=== PATIENT | female | born 1950 | race Two or more races ===

== ENCOUNTER 2018-04-19 23:43 | Observation (INO) | payer OTHER, BC ==
--- NOTE | 2018-04-20 00:01 | PDOC ---
Attending Attestation - HPI HPI: 04/20/18 00:23 The patient is a 67 year old female, with a significant past medical history of HTN and gastritis, who presents to the emergency department with, 3 days of chest pain. She describes her chest pain as a constant, 7/10, nonradiating pain initially onsetting after PT now worsening today. Pain is worsened with deep inspiration and movement and alleviated when sitting upright. She denies recent fevers, chills, headache or dizziness. She denies recent nausea, vomit, diarrhea or constipation. She denies recent dysuria, frequency, urgency or hematuria. She denies recent palpitations or shortness of breath. <Sherwin Lockhart - Last Filed: 04/20/18 00:23> - Resident Resident Name: Loren Jovel - ED Attending Attestation I have performed the following: I have examined & evaluated the patient, The case was reviewed & discussed with the resident, I agree w/resident's findings & plan - Physicial Exam PE: 04/20/18 01:00 Agree with resident exam. Pt has clear lungs and rapid HR @90bpm Pt has soft NT ND abd. She has no flank pain. She has good peripheral pulses and she has no pitting edema. - Medical Decision Making 04/20/18 01:00 Pt will be admitted to telelmetry obs, as she has 4 risk factors for CAD. 04/20/18 01:47 Labs normal; first cardiac enzyme normal. CXR cardiomegaly only; EKG NSR. Nonspecific flat lateral T waves (no old EKGs for comparison). 04/20/18 01:49 Pt will be admitted to tele obs for serial cardiac enzymes. <Cheri Tanner - Last Filed: 04/20/18 01:49> Heart Score/ECG Review - History History: Slightly suspicious - Electrocardiogram EKG: Non specific repolarization disturbance - Age Age: >/= 65 - Risk Factors Risk Factors Heart Score: Yes Hx Hypertension, Yes Positive family hx of cardiac disease, Yes Hx Obesity Based on the list above the patient has:: >/=3 risk factors or Hx atherosclerotic disease - Troponin Troponin: </= normal limit - Score Heart Score - Total: 5 - ECG Intrepretation Rhythm: Regular Rhythm - Benedict Benedict: Normal - QRS Poor R Wave Progression: No Q Wave Present: No - ST and T Early Repolarization: No Non Specific ST-T Wave changes: Yes Flattened T Waves: Yes - ECG Impressions Normal ECG: Yes Non-specific ST Elevation: No Ischemic Changes: Yes Bradycardia: No Torsades stella Pointes: No <Cheri Tanner - Last Filed: 04/20/18 01:49> Attestations - Attestations 04/20/18 00:26 Documentation prepared by Sherwin Lockhart, acting as medical numerical control operator for Cheri Tanner MD. <Sherwin Lockhart - Last Filed: 04/20/18 00:23>
[2018-04-20 00:03] VITALS: BMI 43.9
[2018-04-20] MEDS ORDERED: ACETAMINOPHEN 325 MG TABLET (FP) PO ONE (00:05)
--- NOTE | 2018-04-20 00:18 | PDOC ---
History of Present Illness - General Chief Complaint: Chest Pain Stated Complaint: CHEST PAIN Time Seen by Provider: 04/19/18 23:48 History Source: Patient Exam Limitations: No Limitations - History of Present Illness Initial Comments: 04/20/18 00:08 This is a 67 yo F with PMH of HTN, gastritis and recurrent noncancerous masses ( s/p multiple abd and tissue excisions), who presents due to CP. Left sided nonradiating cp 10/09 is constant, aggravated my movement and respiration, alleviated by sitting up and tylenol, nonradiating. It started 3 days ago after PT for her torn L rotator cuff but became severe this morning. Patient has not had pain like this before. Patient just had a normal physical with PCP and states her HTN is usually well controlled. She has a normal TTE several years ago. She denies sob, palpitations, orthopnea, cough, f/c, edema, anorexia. denies abd pain but does admit to a lot of belching today. denies n/v/d/c. Father of [place] in his 50's, no family history of sudden Past History - Past Medical History Allergies/Adverse Reactions: Allergies Allergy/AdvReac Type Severity Reaction Status Date / Time NSAIDS (Non-Steroidal Allergy Severe Itching Verified 04/20/18 00:30 Anti-Inflamma Home Medications: Ambulatory Orders Hydrochlorothiazide [Hctz -] 25 mg PO DAILY 04/20/18 Losartan Potassium [Cozaar -] 50 mg PO DAILY 04/20/18 - Suicide/Smoking/Psychosocial Hx Smoking History: Never smoked Have you smoked in the past 12 months: No Information on smoking cessation initiated: No Hx Alcohol Use: No Drug/Substance Use Hx: No Review of Systems - Review of Systems Able to Perform ROS?: Yes Is the patient limited Kinyarwanda proficient: No Constitutional: No: Chills, Fever HEENTM: No: Difficulty Swallowing Respiratory: No: Cough, Orthopnea, Shortness of Breath, Hemoptysis Cardiac (ROS): Yes: Chest Pain. No: Edema, Irregular Heart Rate, Lightheadedness, Palpitations, Syncope ABD/GI: No: Constipated, Diarrhea, Nausea, Poor Appetite, Vomiting, Abdominal cramping : No: Dysuria Musculoskeletal: No: Back Pain Neurological: No: Headache Psychiatric: No: Anxiety, Depression *Physical Exam - Vital Signs Last Vital Signs Temp Pulse Resp BP Pulse Ox 98.3 F 88 20 155/92 97 04/19/18 23:55 04/19/18 23:55 04/19/18 23:55 04/19/18 23:55 04/20/18 00:42 - Physical Exam General Appearance: Yes: Nourished, Appropriately Dressed, Mild Distress, Obese HEENT: positive: EOMI, Normal Voice, Symmetrical. negative: Scleral Icterus (R) , Scleral Icterus (L) Neck: positive: Supple. negative: Tender, Lymphadenopathy (R), Lymphadenopathy (L) Respiratory/Chest: positive: Lungs Clear, Normal Breath Sounds Cardiovascular: positive: Regular Rhythm, Regular Rate, S1, S2, Systolic Murmur (grade 2 ). negative: JVD Gastrointestinal/Abdominal: positive: Normal Bowel Sounds, Flat, Soft. negative : Pulsatile Mass, Distended, Rebound, Tenderness, Mass Musculoskeletal: negative: CVA Tenderness Integumentary: positive: Dry, Warm Neurologic: positive: medical technical writer II-XII NML intact (grossly), Fully Oriented, Normal Mood/Affect Heart Score/ECG Review - History History: Slightly suspicious - Electrocardiogram EKG: Non specific repolarization disturbance - Age Age: >/= 65 - Risk Factors Risk Factors Heart Score: Yes Hx Hypertension, No Hx Diabetes, No Smoking History Based on the list above the patient has:: 1-2 risk factors - Troponin Troponin: </= normal limit - Score Heart Score - Total: 4 - ECG Intrepretation Rhythm: Regular Rhythm - [place]: Normal Moderate Sedation - Procedure Monitoring Vital Signs: Procedure Monitoring Vital Signs Temperature 98.3 F 04/19/18 23:55 Pulse Rate 88 04/19/18 23:55 Respiratory Rate 20 04/19/18 23:55 Blood Pressure 155/92 04/19/18 23:55 O2 Sat by Pulse Oximetry (%) 97 04/20/18 00:42 ED Treatment Course - LABORATORY CBC & Chemistry Diagram: 04/20/18 00:30 04/20/18 01:00 - ADDITIONAL ORDERS Additional order review: Laboratory Results 04/20/18 04/20/18 04/20/18 01:00 01:00 00:30 Sodium 137 Cancelled Potassium 3.7 Cancelled Chloride 99 Cancelled Carbon Dioxide 33 H Cancelled Anion Gap 5 L Cancelled BUN 19 H Cancelled Creatinine 0.8 Cancelled Creat Clearance w eGFR > 60 Cancelled Random Glucose 118 H Cancelled Calcium 8.9 Cancelled Total Bilirubin 0.4 Cancelled AST 19 Cancelled ALT 26 Cancelled Alkaline Phosphatase 101 Cancelled Creatine Kinase 57 Cancelled Troponin I < 0.02 Cancelled Total Protein 7.7 Cancelled Albumin 3.6 Cancelled 04/20/18 00:30 RBC 4.45 MCV 84.7 MCHC 33.8 RDW 14.7 MPV 9.8 Neutrophils % 63.4 Lymphocytes % 28.4 Monocytes % 6.6 Eosinophils % 1.0 Basophils % 0.6 EKG NS, nonspecific t changes in lateral leads, no ekg to compare to CXR unremarkable for acute intrathoracic pathology. labs unremarkable, trop negative x 1 despite negative w/u so far patient has several risk factors and a heart score of 4, should be obs tele for trop x3 r/o acs - RADIOLOGY Radiology Studies Ordered: Category Date Time Status CHEST X-RAY PORTABLE* [RAD] Stat Radiology 04/20/18 01:30 Taken - Medications Given in the ED: ED Medications Discontinued Medications Generic Name Dose Route Start Last Admin Trade Name Freq PRN Reason Stop Dose Admin Acetaminophen 650 mg 04/20/18 00:05 04/20/18 00:47 Tylenol - PO 04/20/18 00:06 650 mg ONCE ONE Administration *DC/Admit/Observation/Transfer Diagnosis at time of Disposition: Chest pain - Discharge Dispostion Condition at time of disposition: Guarded Decision to Admit order: Yes - Referrals Referrals: Jarrell Echevarria [Primary Care Provider] - - Patient Instructions - Post Discharge Activity
[2018-04-20 00:35] LABS: BASO % 0.6 % (0-2.0); HEMATOCRIT 37.7 % (32.4-45.2); HEMOGLOBIN 12.7 GM/dL (10.7-15.3); LYMPH % 28.4 % (8-40); MCH 28.6 pg (25.7-33.7); MCHC 33.8 g/dl (32.0-36.0); MEAN CELL VOLUME 84.7 fl (80-96); MEAN PLT VOLUME 9.8 fl (7.5-11.1); MONO % 6.6 % (3.8-10.2); NEUT % 63.4 % (42.8-82.8); PLATELET COUNT 208 K/MM3 (134-434); RBC 4.45 M/mm3 (3.60-5.2); RDW 14.7 % (11.6-15.6); WHITE BLOOD COUNT 9.2 K/mm3 (4.0-10.0)
[2018-04-20 01:37] LABS: ALBUMIN 3.6 g/dl (3.4-5.0); ALK PHOS 101 U/L (45-117); ANION GAP 5 MMOL/L (8-16); BILIRUBIN,TOTAL 0.4 mg/dL (0.2-1); BLOOD UREA NITROGEN 19 mg/dL (7-18); CALCIUM 8.9 mg/dL (8.5-10.1); CHLORIDE 99 mmol/L (98-107); CO2 33 mmol/L (21-32); CREATININE 0.8 mg/dL (0.55-1.3); GLUCOSE,RANDOM 118 mg/dL (74-106); POTASSIUM 3.7 mmol/L (3.5-5.1); SGOT/AST 19 U/L (15-37); SGPT/ALT 26 U/L (13-61); SODIUM 137 mmol/L (136-145); TOT PROT 7.7 g/dl (6.4-8.2)
--- NOTE | 2018-04-20 03:43 | HP ---
CHIEF COMPLAINT:chest pain PCP:Dr. Echevarria HISTORY OF PRESENT ILLNESS: Patient is a 67 year old female with past medical history of Hypertension, OA, Gastritis, multiple growth cysts (s/p VASILIY-BSO, hemicolectomy, and R breast cyst excision), presented with worsening left-sided chest pain and left shoulder pain that started this morning. Patient does weekly physical therapy for a left rotator cuff tear. Three days ago, patient reported increased intensity during her PT session. This morning, she was carrying heavy bags of soil and plants in her garden. A few moments later experienced sudden onset, constant, 8/10, vague left-sided chest and left shoulder pain. Pain was aggravated by movement and breathing, relieved by rest and Tylenol. She denies any SOB, palpitations, headache, dizziness, fever, chills, nausea, vomiting, abdominal pain, diarrhea, urinary symptoms. ER course was notable for: (1)Trop <0.02, EKG NSR (2)Tylenol 650mg PO given for pain (3) Recent Travel:denies any recent travel. PAST MEDICAL HISTORY: Hypertension OA Gastritis multiple growth cysts PAST SURGICAL HISTORY: VASILIY-BSO hemicolectomy R breast cyst excision Bilateral knee replacements Social History: Smoking:denies Alcohol:occasional Drugs: denies Family History: Father - [place] Mother - leukemia Allergies NSAIDS (Non-Steroidal Anti-Inflamma Allergy (Severe, Verified 04/20/18 00:30) Itching HOME MEDICATIONS: Home Medications Medication Instructions Recorded Hydrochlorothiazide [Hctz -] 25 mg PO DAILY 04/20/18 Losartan Potassium [Cozaar -] 100 mg PO DAILY 04/20/18 REVIEW OF SYSTEMS CONSTITUTIONAL: Absent: fever, chills, diaphoresis, generalized weakness, malaise, loss of appetite, weight change HEENT: Absent: rhinorrhea, nasal congestion, throat pain, throat swelling, difficulty swallowing, mouth swelling, ear pain, eye pain, visual changes CARDIOVASCULAR: Absent: chest pain, syncope, palpitations, irregular heart rate, lightheadedness , peripheral edema RESPIRATORY: Absent: cough, shortness of breath, dyspnea with exertion, orthopnea, wheezing, stridor, hemoptysis GASTROINTESTINAL: Absent: abdominal pain, abdominal distension, nausea, vomiting, diarrhea, constipation, melena, hematochezia GENITOURINARY: Absent: dysuria, frequency, urgency, hesitancy, hematuria, flank pain, genital pain MUSCULOSKELETAL: left shoulder pain Absent: myalgia, arthralgia, joint swelling, back pain, neck pain SKIN: Absent: rash, itching, pallor HEMATOLOGIC/IMMUNOLOGIC: Absent: easy bleeding, easy bruising, lymphadenopathy, frequent infections ENDOCRINE: Absent: unexplained weight gain, unexplained weight loss, heat intolerance, cold intolerance NEUROLOGIC: Absent: headache, focal weakness or paresthesias, dizziness, unsteady gait, seizure, mental status changes, bladder or bowel incontinence PSYCHIATRIC: Absent: anxiety, depression, suicidal or homicidal ideation, hallucinations. PHYSICAL EXAMINATION Vital Signs - 24 hr 04/19/18 04/20/18 23:55 00:42 Temperature 98.3 F Pulse Rate 88 Respiratory 20 Rate Blood Pressure 155/92 O2 Sat by Pulse 97 97 Oximetry (%) GENERAL: Awake, alert, and fully oriented, in no acute distress. HEAD: Normal with no signs of trauma. EYES: PERRLA, EOMI, sclera anicteric, conjunctiva clear. EARS, NOSE, THROAT: Nares patent, oropharynx clear without exudates. Moist mucous membranes. NECK: Normal range of motion, soft, supple, no JVD LUNGS: Breath sounds equal, clear to auscultation bilaterally. HEART: Regular rate and rhythm, normal S1 and S2 without murmur, rub or gallop. ABDOMEN: Soft, obese, nontender, not distended, normoactive bowel sounds. UPPER EXTREMITIES: 2+ pulses, warm, well-perfused. No peripheral edema. LOWER EXTREMITIES: 2+ pulses, warm, well-perfused.No peripheral edema. NEUROLOGICAL: Cranial nerves II-XII intact. Normal speech. Gait not observed. PSYCHIATRIC: Cooperative. Good eye contact. Appropriate mood and affect. SKIN: Warm, dry, normal turgor, no rashes or lesions noted. Laboratory Results - last 24 hr 04/20/18 04/20/18 04/20/18 00:30 00:30 01:00 WBC 9.2 RBC 4.45 Hgb 12.7 Hct 37.7 MCV 84.7 MCH 28.6 MCHC 33.8 RDW 14.7 Plt Count 208 MPV 9.8 Absolute Neuts (auto) 5.8 Neutrophils % 63.4 Lymphocytes % 28.4 Monocytes % 6.6 Eosinophils % 1.0 Basophils % 0.6 Nucleated RBC % 0 Sodium Cancelled Potassium Cancelled Chloride Cancelled Carbon Dioxide Cancelled Anion Gap Cancelled BUN Cancelled Creatinine Cancelled Creat Clearance w eGFR Cancelled Random Glucose Cancelled Calcium Cancelled Total Bilirubin Cancelled AST Cancelled ALT Cancelled Alkaline Phosphatase Cancelled Creatine Kinase Cancelled 57 Troponin I Cancelled < 0.02 Total Protein Cancelled Albumin Cancelled 04/20/18 01:00 WBC RBC Hgb Hct MCV MCH MCHC RDW Plt Count MPV Absolute Neuts (auto) Neutrophils % Lymphocytes % Monocytes % Eosinophils % Basophils % Nucleated RBC % Sodium 137 Potassium 3.7 Chloride 99 Carbon Dioxide 33 H Anion Gap 5 L BUN 19 H Creatinine 0.8 Creat Clearance w eGFR > 60 Random Glucose 118 H Calcium 8.9 Total Bilirubin 0.4 AST 19 ALT 26 Alkaline Phosphatase 101 Creatine Kinase Troponin I Total Protein 7.7 Albumin 3.6 ASSESSMENT/PLAN: Patient is a 67 year old female with past medical history of Hypertension, OA, Gastritis, multiple growth cysts (s/p VASILIY-BSO, hemicolectomy, and R breast cyst excision), presented with worsening left-sided chest pain and left shoulder pain that started this morning. #Chest pain: likely 2/2 costochondritis, rule out ACS -Pain is reproducible, relieved by Tylenol -Trop <0.02 , EKG: NSR with nonspecific T wave changes -will trend trop and EKG -Continue Tylenol PRN for pain -Echo ordered -Cardiology (Dr. Ac) consulted. #Hypertension -Continue home Losartan 100mg daily and HCTZ 25 mg daily -monitor BP #Gastritis: chronic -Hx of GI bleed with NSAIDs -As per patient, avoid ASA and other blood thinners -Tylenol PRN for pain #FEN -Not on any standing fluids -Electrolytes wnl, routine bmp monitoring -Sodium controlled diet #Prophylaxis -SCDs #Disposition -full code -tele obs Visit type - Emergency Visit Emergency Visit: Yes ED Registration Date: 04/20/18 Care time: The patient presented to the Emergency Department on the above date and was hospitalized for further evaluation of their emergent condition. - New Patient This patient is new to me today: Yes Date on this admission: 04/20/18 - Critical Care Critical Care patient: No
--- NOTE | 2018-04-20 04:18 | HOSP ---
Subjective - Review of Symptoms Events since last encounter: Patient is comfortable with no acute distress. denies having any chest pain, pain improved with tylenol. Vital Signs Temperature 98.3 F 04/19/18 23:55 Pulse Rate 75 04/20/18 03:47 Respiratory Rate 18 04/20/18 03:47 Blood Pressure 148/88 04/20/18 03:47 O2 Sat by Pulse Oximetry (%) 99 04/20/18 03:47 GENERAL: Awake, alert, and fully oriented, in no acute distress. HEAD: Normal with no signs of trauma. EYES: PERRLA, EOMI, sclera anicteric, conjunctiva clear. EARS, NOSE, THROAT: Ears normal, nares patent, oropharynx clear without exudates. Moist mucous membranes. NECK: Normal range of motion, supple without lymphadenopathy, JVD, or masses. LUNGS: Breath sounds equal, clear to auscultation bilaterally. No wheezes, and no crackles. No accessory muscle use. HEART: Regular rate and rhythm, normal S1 and S2 without murmur, rub or gallop. ABDOMEN: Soft, nontender, not distended, normoactive bowel sounds, no guarding, no rebound, no masses. No hepatomegaly or splenomegaly. MUSCULOSKELETAL: Normal range of motion at all joints. No bony deformities or tenderness. No CVA tenderness. EXTREMITIES: 2+ pulses, warm, well-perfused. No cyanosis. No clubbing. No peripheral edema. NEUROLOGICAL: Cranial nerves II-XII intact. Normal speech. Normal gait. PSYCHIATRIC: Cooperative. Good eye contact. Appropriate mood and affect. SKIN: Warm, dry, normal turgor, no rashes or lesions noted, normal capillary refill. CBCD WBC 9.2 K/mm3 (4.0-10.0) 04/20/18 00:30 RBC 4.45 M/mm3 (3.60-5.2) 04/20/18 00:30 Hgb 12.7 GM/dL (10.7-15.3) 04/20/18 00:30 Hct 37.7 % (32.4-45.2) 04/20/18 00:30 MCV 84.7 fl (80-96) 04/20/18 00:30 MCHC 33.8 g/dl (32.0-36.0) 04/20/18 00:30 RDW 14.7 % (11.6-15.6) 04/20/18 00:30 Plt Count 208 K/MM3 (134-434) 04/20/18 00:30 MPV 9.8 fl (7.5-11.1) 04/20/18 00:30 CMP Sodium 137 mmol/L (136-145) 04/20/18 01:00 Potassium 3.7 mmol/L (3.5-5.1) 04/20/18 01:00 Chloride 99 mmol/L (98-107) 04/20/18 01:00 Carbon Dioxide 33 mmol/L (21-32) H 04/20/18 01:00 Anion Gap 5 MMOL/L (8-16) L 04/20/18 01:00 BUN 19 mg/dL (7-18) H 04/20/18 01:00 Creatinine 0.8 mg/dL (0.55-1.3) 04/20/18 01:00 Creat Clearance w eGFR > 60 (>60) 04/20/18 01:00 Random Glucose 118 mg/dL (74-106) H 04/20/18 01:00 Calcium 8.9 mg/dL (8.5-10.1) 04/20/18 01:00 Total Bilirubin 0.4 mg/dL (0.2-1) 04/20/18 01:00 AST 19 U/L (15-37) 04/20/18 01:00 ALT 26 U/L (13-61) 04/20/18 01:00 Alkaline Phosphatase 101 U/L (45-117) 04/20/18 01:00 Total Protein 7.7 g/dl (6.4-8.2) 04/20/18 01:00 Albumin 3.6 g/dl (3.4-5.0) 04/20/18 01:00 CARDIAC ENZYMES Creatine Kinase 57 IU/L (26-192) 04/20/18 01:00 Troponin I < 0.02 ng/ml (0.00-0.05) 04/20/18 01:00 Current Medications Generic Name Dose Route Start Last Admin Trade Name Freq PRN Reason Stop Dose Admin Acetaminophen 650 mg 04/20/18 03:30 Tylenol - PO Q6H PRN Fever Or Pain level 1-5 Hydrochlorothiazide 25 mg 04/20/18 10:00 Hctz - PO DAILY [facility] Losartan Potassium 100 mg 04/20/18 10:00 Cozaar - PO DAILY [facility] Home Medications Medication Instructions Recorded Hydrochlorothiazide [Hctz -] 25 mg PO DAILY 04/20/18 Losartan Potassium [Cozaar -] 100 mg PO DAILY 04/20/18 EKG: NSR with nonspecific T wave changes, LAE ASSESSMENT/PLAN: Patient is a 67 year old female with past medical history of Hypertension, OA, Gastritis, multiple growth cysts (s/p VASILIY-BSO, hemicolectomy, and R breast cyst excision), presented with worsening left-sided chest pain and left shoulder pain that started this morning. #Acute chest pain: likely costochondritis, rule out ACS, Pain is reproducible, relieved by Tylenol, tylenol prn 1st Trop <0.02 , trend trop and EKG, follow echo -Cardiology (Dr. Ac) consulted. #Hypertension continue home Losartan 100mg daily and HCTZ 25 mg daily, monitor bp #hx of chronic Gastritis: avoid NSAIDs and asa with hx of GI bleed # Morbid Obesity: weight loss was suggested. DVt Px: SCDs full code Physical Examination Vital Signs: Vital Signs Temperature 98.3 F 04/19/18 23:55 Pulse Rate 75 04/20/18 03:47 Respiratory Rate 18 04/20/18 03:47 Blood Pressure 148/88 04/20/18 03:47 O2 Sat by Pulse Oximetry (%) 99 04/20/18 03:47 Labs: CBC, BMP 04/20/18 00:30 04/20/18 01:00
--- NOTE | 2018-04-20 05:16 | PN ---
Teaching Attending Note Name of Resident: Eloisa Middleton ATTENDING PHYSICIAN STATEMENT I saw and evaluated the patient. I reviewed the resident's note and discussed the case with the resident. I agree with the resident's findings and plan as documented. SUBJECTIVE: OBJECTIVE: aaox3 s1 and s2 rrr lungs CTA no edema ASSESSMENT AND PLAN: This is a 67 year old f with past medical history of Hypertension, OA, Gastritis , multiple growth cysts (s/p VASILIY-BSO, hemicolectomy, and R breast cyst excision) , presented with worsening left-sided chest pain and left shoulder pain that started this morning. #Atypical Chest pain rule out ACS -Trop <0.02 , EKG: NSR with nonspecific T wave changes -will trend trop and EKG -Echo ordered -Cardiology (Dr. Ac) consulted. #Hypertension -Continue home Losartan 100mg daily - c/w HCTZ 25 mg daily -monitor BP #Gastritis: chronic -Hx of GI bleed with NSAIDs -As per patient, avoid ASA and other blood thinners -Tylenol PRN for pain
[2018-04-20] MEDS: ACETAMINOPHEN 325 MG TABLET (FP) PO PRN ×2 (05:34→13:43)
[2018-04-20 08:09] LABS: BASO % 0.3 % (0-2.0); EOS % 0.5 % (0-4.5); HEMOGLOBIN 12.1 GM/dL (10.7-15.3); LYMPH % 26.4 % (8-40); MCH 28.3 pg (25.7-33.7); MCHC 33.7 g/dl (32.0-36.0); MEAN CELL VOLUME 84.1 fl (80-96); MEAN PLT VOLUME 9.8 fl (7.5-11.1); MONO % 7.2 % (3.8-10.2); NEUT % 65.6 % (42.8-82.8); PLATELET COUNT 208 K/MM3 (134-434); RBC 4.28 M/mm3 (3.60-5.2); WHITE BLOOD COUNT 8.3 K/mm3 (4.0-10.0)
[2018-04-20 08:38] LABS: ALBUMIN 3.4 g/dl (3.4-5.0); ALK PHOS 89 U/L (45-117); ANION GAP 8 MMOL/L (8-16); BILIRUBIN,TOTAL 0.6 mg/dL (0.2-1); BLOOD UREA NITROGEN 15 mg/dL (7-18); CALCIUM 8.6 mg/dL (8.5-10.1); CHLORIDE 101 mmol/L (98-107); CO2 30 mmol/L (21-32); CREATININE 0.6 mg/dL (0.55-1.3); GLUCOSE,RANDOM 105 mg/dL (74-106); MAGNESIUM 2.1 mg/dL (1.8-2.4); PHOSPHOROUS 3.3 mg/dL (2.5-4.9); POTASSIUM 3.6 mmol/L (3.5-5.1); SGOT/AST 16 U/L (15-37); SGPT/ALT 23 U/L (13-61); SODIUM 139 mmol/L (136-145); TOT PROT 7.3 g/dl (6.4-8.2)
[2018-04-20] MEDS ORDERED: HYDROCHLOROTHIAZIDE 25 MG TABLET (FP) PO SCH (10:00)
[2018-04-20] MEDS ORDERED: ENOXAPARIN NA (PORCINE) 40 MG/0.4 ML DISP.SYRIN SQ SCH (10:00)
[2018-04-20] MEDS ORDERED: LOSARTAN POTASSIUM 50 MG TABLET (FP) PO SCH (10:00)
--- NOTE | 2018-04-20 12:58 | CON.CARD ---
Consult Consult Specialty:: Cardiology Referred by:: Anna Reason for Consultation:: chest pain - History of Present Illness Chief Complaint: chest pain History of Present Illness: 67F h/o HTN, OA, gastritis, cysts (s/p VASILIY-BSO, hemicolectomy, and R breast cyst excision) p/w L brina pain and L shoulder pain starting morning on day of admission. Has h/o L rotator cuff tear, was carrying heavy bags, after felt L side chest and shoulder pain worse with movement and breathing, relieved with rest and tylenol. No dyspnea, palps, edema, orthopnea, PND, nausea. Trop neg x 2. This morning still feeling pain, worse with deep breaths, turning in bed and putting pressure. improves with tylenol and heat pack. - Alcohol/Substance Use Hx Alcohol Use: No - Smoking History Smoking history: Never smoked Have you smoked in the past 12 months: No Home Medications - Allergies Allergies/Adverse Reactions: Allergies Allergy/AdvReac Type Severity Reaction Status Date / Time NSAIDS (Non-Steroidal Allergy Severe Itching Verified 04/20/18 00:30 Anti-Inflamma - Home Medications Home Medications: Ambulatory Orders Hydrochlorothiazide [Hctz -] 25 mg PO DAILY 04/20/18 Losartan Potassium [Cozaar -] 100 mg PO DAILY 04/20/18 Family Disease History - Family Disease History Family History: Unremarkable Review of Systems - Review of Systems Constitutional: reports: No Symptoms Eyes: reports: No Symptoms HENT: reports: No Symptoms Neck: reports: No Symptoms Cardiovascular: reports: No Symptoms Respiratory: reports: No Symptoms Gastrointestinal: reports: No Symptoms Genitourinary: reports: No Symptoms Musculoskeletal: reports: No Symptoms Integumentary: reports: No Symptoms Neurological: reports: No Symptoms Endocrine: reports: No Symptoms Hematology/Lymphatic: reports: No Symptoms Psychiatric: reports: No Symptoms Vital Signs: Vital Signs Temperature 98.7 F 04/20/18 10:19 Pulse Rate 95 H 04/20/18 10:19 Respiratory Rate 18 04/20/18 10:19 Blood Pressure 142/80 04/20/18 10:19 O2 Sat by Pulse Oximetry (%) 97 04/20/18 12:00 Constitutional: Yes: Well Nourished, No Distress, Calm Eyes: Yes: Conjunctiva Clear, EOM Intact HENT: Yes: Atraumatic, Normocephalic Neck: Yes: Supple, Trachea Midline Respiratory: Yes: Regular, CTA Bilaterally Gastrointestinal: Yes: Normal Bowel Sounds, Soft Cardiovascular: Yes: Regular Rate and Rhythm JVD: No Carotid Bruit: No Heart Sounds: Yes: S1, S2 Musculoskeletal: No: Back Pain Extremities: No: Cold Edema: No Peripheral Pulses WNL: Yes Peripheral Pulses: 2+ Left Doralis Pedis, 2+ Right Dorsalis Pedis Neurological: Yes: Alert, Oriented Psychiatric: Yes: Alert, Oriented - Other Data Labs, Other Data: CBC, BMP 04/20/18 06:00 04/20/18 06:00 Troponin, BNP 04/20/18 04/20/18 04/20/18 00:30 01:00 06:00 Troponin I Cancelled < 0.02 < 0.02 Troponin, BNP 04/20/18 04/20/18 04/20/18 00:30 01:00 06:00 Troponin I Cancelled < 0.02 < 0.02 Assessment/Plan EKG:sinus, nonspecific T wave abnormality CXR: no acute process Tele:sinus, sinus tachycardia chest pain - reproducible, neg trop x 2, no ischemic changes on EKG - atypical for cardiac etiology, likely musculoskeletal - advised to follow up with cardiology as outpatient, stable for discharge from cardiac perspective HTN - stable on current meds, continue gastritis - manage per primary
[2018-04-20 14:49] VITALS: BP 154/78; PULSE 99; TEMP 98.9
--- NOTE | 2018-04-21 19:09 | EKG ---
Test Reason : Blood Pressure : / mmHG Vent. Rate : 093 BPM Atrial Rate : 093 BPM P-R Int : 180 ms QRS Dur : 098 ms QT Int : 338 ms P-R-T Axes : 067 015 084 degrees QTc Int : 420 ms NORMAL SINUS RHYTHM POSSIBLE LEFT ATRIAL ENLARGEMENT T WAVE ABNORMALITY, CONSIDER LATERAL ISCHEMIA ABNORMAL ECG WHEN COMPARED WITH ECG OF 19-APR-2018 23:52, T WAVE INVERSION NOW EVIDENT IN LATERAL LEADS Confirmed by BOSSMAN CA, STEPHANIE ([id number]) on 04/21/2018 7:09:17 PM Referred By: Donald LYONS Confirmed By:STEPHANIE KEITA MD
--- NOTE | 2018-04-21 19:12 | EKG ---
Test Reason : Blood Pressure : / mmHG Vent. Rate : 093 BPM Atrial Rate : 093 BPM P-R Int : 184 ms QRS Dur : 094 ms QT Int : 360 ms P-R-T Axes : 056 014 063 degrees QTc Int : 447 ms NORMAL SINUS RHYTHM POSSIBLE LEFT ATRIAL ENLARGEMENT NONSPECIFIC T WAVE ABNORMALITY ABNORMAL ECG NO PREVIOUS ECGS AVAILABLE Confirmed by BOSSMAN CA, STEPHANIE ([id number]) on 04/21/2018 7:12:10 PM Referred By: Confirmed By:STEPHANIE KEITA MD
== END 2018-04-20 14:53 | disposition home or self-care (01) ==
LOC: JER 23:43 → JERBED 04-20 01:51 → J4S 04-20 04:06
PROVIDERS: ADMIT Internal Medicine; ATTEND Internal Medicine
DX: R07.89 Other chest pain (principal); I10 Essential (primary) hypertension; K29.50 Unspecified chronic gastritis without bleeding; M19.90 Unspecified osteoarthritis, unspecified site; R00.0 Tachycardia, unspecified; E66.01 Morbid (severe) obesity due to excess calories; Z68.41 Body mass index [BMI] 40.0-44.9, adult; Z82.49 Family history of ischemic heart disease and other diseases of the circulatory system
CPT/HCPCS: 36415; 71045-TC-FY; 80053; 82550; 83735; 84100; 84484; 85025; 93005; 93010; 99285-25; G0378

== ENCOUNTER 2021-07-06 18:16 | Emergency (ER) | payer OTHER, BC ==
[2021-07-06 18:42] VITALS: TEMP 98.4; BMI 39.8
[2021-07-06 19:49] VITALS: BP 188/93; PULSE 74
[2021-07-06 20:59] LABS: BASO % 0.5 % (0-2.0); EOS % 1.5 % (0-4.5); HEMATOCRIT 38.7 % (32.4-45.2); HEMOGLOBIN 12.9 GM/dL (10.7-15.3); LYMPH % 40.4 % (8-40); MCH 27.8 pg (25.7-33.7); MCHC 33.3 g/dl (32.0-36.0); MEAN CELL VOLUME 83.6 fl (80-96); MEAN PLT VOLUME 9.8 fl (7.5-11.1); MONO % 4.8 % (3.8-10.2); NEUT % 52.8 % (42.8-82.8); PLATELET COUNT 216 10^3/uL (134-434); RBC 4.63 M/mm3 (3.60-5.2); RDW 15.2 % (11.6-15.6); WHITE BLOOD COUNT 6.9 K/mm3 (4.0-10.0)
[2021-07-06 21:05] LABS: PH,URINE 5.5 (5.0-8.0); URINE APPEARANCE CLEAR; URINE BILIRUBIN NEGATIVE (NEGATIVE); URINE COLOR YELLOW; URINE GLUCOSE (UA) NEGATIVE (NEGATIVE); URINE KETONE NEGATIVE (NEGATIVE); URINE LEUK ESTERASE NEGATIVE (NEGATIVE); URINE NITRITE NEGATIVE (NEGATIVE); URINE PROTEIN NEGATIVE (NEGATIVE); URINE UROBILINOGEN 0.2 mg/dL (0.2-1.0)
[2021-07-06 21:19] LABS: CALCIUM 8.9 mg/dL (8.5-10.1)
[2021-07-06 21:20] LABS: ALBUMIN 3.4 g/dl (3.4-5.0); BLOOD UREA NITROGEN 18.6 mg/dL (7-18)
[2021-07-06 21:23] LABS: CREATININE 0.7 mg/dL (0.55-1.3)
[2021-07-06 21:24] LABS: BILIRUBIN,TOTAL 0.4 mg/dL (0.2-1); TOT PROT 7.6 g/dl (6.4-8.2)
== END 2021-07-06 22:17 | disposition home or self-care (01) ==
LOC: JER 18:16
DX: I10 Essential (primary) hypertension (principal)
CPT/HCPCS: 36415; 80053; 81003; 85025; 93005; 93010; 99284-25